=== PATIENT | male | born 1990 | race Caucasian/White ===

== ENCOUNTER 2017-09-10 21:07 | Emergency (ER) | payer BC ==
[2017-09-10 21:15] VITALS: BP 153/93
[2017-09-10] MEDS ORDERED: guaiFENesin/CODIEN 100MG-10MG* 5 ML UDC PO ONE (21:24)
--- NOTE | 2017-09-10 21:32 | UC ---
Respiratory Complaint HPI - HPI Summary HPI Summary: patient has had annoying cough, harsh especially at night, no fever, - History of Current Complaint Chief Complaint: UCRespiratory Stated Complaint: SORE THROAT COUGH RUNNY NOSE Time Seen by Provider: 09/10/17 21:17 Hx Obtained From: Patient Onset/Duration: Sudden Onset, Lasting Days Timing: Constant Severity Initially: Moderate Severity Currently: Moderate Aggravating Factors: Deep Breaths, Recumbent Position Alleviating Factors: Nothing Associated Signs And Symptoms: Positive: Wheezing, URI, Nasal Congestion, Sinus Discomfort - Allergies/Home Medications Allergies/Adverse Reactions: Allergies Allergy/AdvReac Type Severity Reaction Status Date / Time No Known Allergies Allergy Verified 09/10/17 21:15 PMH/Surg Hx/FS Hx/Imm Hx Previously Healthy: Yes - Surgical History Surgical History: Yes Surgery Procedure, Year, and Place: Right and left ACL reconstruction. SUB.CYST FROM SKULL - Family History Known Family History: Positive: Hypertension - Social History Alcohol Use: Occasionally Substance Use Type: None Smoking Status (MU): Never Smoked Tobacco Review of Systems Constitutional: Negative Skin: Negative Eyes: Negative ENT: Negative, Nasal Discharge, Sinus Congestion Respiratory: Cough Cardiovascular: Negative Gastrointestinal: Negative Genitourinary: Negative Motor: Negative Neurovascular: Negative Musculoskeletal: Negative Neurological: Negative Psychological: Negative Is Patient Immunocompromised?: No All Other Systems Reviewed And Are Negative: Yes Physical Exam Triage Information Reviewed: Yes Appearance: Well-Appearing, Well-Nourished, Pain Distress Vital Signs: Initial Vital Signs Temp 96.8 F 09/10/17 21:11 Pulse 90 09/10/17 21:11 Resp 14 09/10/17 21:11 BP 153/93 09/10/17 21:11 Pulse Ox 98 09/10/17 21:11 Vital Signs Reviewed: Yes Eye Exam: Normal ENT Exam: Normal ENT: Positive: Hearing grossly normal, Pharynx normal, TM dull Dental Exam: Normal Neck exam: Normal Neck: Positive: Supple, Nontender, No Lymphadenopathy Respiratory Exam: Normal Respiratory: Positive: Chest non-tender, Normal breath sounds, No respiratory distress, Rhonchi, Wheezing, Inspiration Cardiovascular Exam: Normal Cardiovascular: Positive: RRR Abdominal Exam: Normal Abdomen Description: Positive: Nontender, No Organomegaly, Soft Bowel Sounds: Positive: Present Musculoskeletal Exam: Normal Musculoskeletal: Positive: Strength Intact, ROM Intact, No Edema Neurological Exam: Normal Neurological: Positive: Alert, Muscle Tone Normal Psychological Exam: Normal Skin Exam: Normal UC Diagnostic Evaluation - Laboratory O2 Sat by Pulse Oximetry: 98 Respiratory Course/Dx - Course Course Of Treatment: hx obtained, exam performed, meds reviewed, treated for bronchitis - Differential Dx/Diagnosis Differential Diagnosis/HQI/PQRI: Bronchitis, Sinusitis Provider Diagnoses: bronchitis Discharge - Discharge Plan Condition: Stable Disposition: HOME Prescriptions: Albuterol 2.5MG/3ML (0.083%)* [Ventolin 2.5 MG/3 ML NEB.SHANNAN*] 2.5 mg INH Q4H #1 mdi Dextromethorphan-Guaifenesin [Guaifenesin-Dm 100-10 mg/5Ml] 10 ml PO BEDTIME # 100 ml Guaifenesin-Codeine [Cheratussin AC 100-10 mg/5Ml] 10 ml PO BEDTIME #100 ml MDD 10 ml predniSONE TAB* [Deltasone TAB*] 40 mg PO DAILY #14 tab Patient Education Materials: Acute Bronchitis (ED) Referrals: TRAV Bonner [Primary Care Provider] - Additional Instructions: 1. take the medication as prescribed. 2. INcrease fluid intake 3. Humidifier at night. 4. Follow up as needed.
== END 2017-09-10 21:37 | disposition home or self-care (01) ==
LOC: UCCORT 21:07
DX: J40 Bronchitis, not specified as acute or chronic (principal)
CPT/HCPCS: 99212; A9270-GY; G0463

== ENCOUNTER 2017-10-03 19:31 | Emergency (ER) | payer BC ==
[2017-10-03 20:42] VITALS: BP 136/88
[2017-10-03] MEDS ORDERED: Amoxicillin/Clavulanate TAB* 875 MG PO ONE (21:14)
--- NOTE | 2017-10-03 21:29 | UC ---
Throat Pain/Nasal Pj HPI - HPI Summary HPI Summary: SINUS CONGESTION, PRODUCTIVE COUGH, SORE THROAT SINCE AUGUST. NO FEVER. NO HEADACHE. FACIAL PRESSURE. NO EAR ACHE. - History of Current Complaint Chief Complaint: UCRespiratory Stated Complaint: RESPIRATORY (RECHECK) Time Seen by Provider: 10/03/17 21:07 Hx Obtained From: Patient Onset/Duration: Gradual Onset, Lasting Weeks, Still Present Severity: Moderate Pain Intensity: 0 Pain Scale Used: 0-10 Numeric Cough: Productive Associated Signs & Symptoms: Positive: Hoarseness, Sinus Discomfort, Nasal Discharge - Epiglottits Risk Factors Epiglottis Risk Factors: Negative - Allergies/Home Medications Allergies/Adverse Reactions: Allergies Allergy/AdvReac Type Severity Reaction Status Date / Time No Known Allergies Allergy Verified 10/03/17 20:36 PMH/Surg Hx/FS Hx/Imm Hx Previously Healthy: Yes - Surgical History Surgical History: Yes Surgery Procedure, Year, and Place: Right and left ACL reconstruction. SUB.CYST FROM SKULL - Family History Known Family History: Positive: Hypertension - Social History Occupation: Employed Full-time Lives: With Family Alcohol Use: None Substance Use Type: None Smoking Status (MU): Never Smoked Tobacco - Immunization History Most Recent Influenza Vaccination: no Review of Systems Constitutional: Negative Skin: Negative Eyes: Negative ENT: Sore Throat - Scratchy throat, Sinus Congestion, Sinus Pain/Tenderness Respiratory: Cough Cardiovascular: Negative Gastrointestinal: Negative Genitourinary: Negative Motor: Negative Neurovascular: Negative Musculoskeletal: Negative Neurological: Negative Psychological: Negative Is Patient Immunocompromised?: No All Other Systems Reviewed And Are Negative: Yes Physical Exam Triage Information Reviewed: Yes Appearance: Well-Appearing, No Pain Distress, Well-Nourished Vital Signs: Initial Vital Signs Temp 97.5 F 10/03/17 20:36 Pulse 93 10/03/17 20:36 Resp 18 10/03/17 20:36 BP 136/88 10/03/17 20:36 Pulse Ox 97 10/03/17 20:36 Vital Signs Reviewed: Yes Eye Exam: Normal ENT: Positive: Pharynx normal, Nasal congestion, TM bulging, TM dull Dental Exam: Normal Neck exam: Normal Neck: Positive: Supple, Nontender, No Lymphadenopathy Respiratory Exam: Other - cough Respiratory: Positive: Chest non-tender, Lungs clear, Normal breath sounds, No respiratory distress, No accessory muscle use Cardiovascular Exam: Normal Cardiovascular: Positive: RRR, No Murmur, Pulses Normal, Brisk Capillary Refill Abdominal Exam: Normal Abdomen Description: Positive: Nontender, No Organomegaly Musculoskeletal Exam: Normal Musculoskeletal: Positive: Strength Intact, ROM Intact Neurological Exam: Normal Psychological Exam: Normal Skin Exam: Normal Throat Pain/Nasal Course/Dx - Differential Dx/Diagnosis Differential Diagnosis/HQI/PQRI: Pharyngitis, URI Provider Diagnoses: SINUSITIS; BRONCHITIS Discharge - Discharge Plan Condition: Stable Disposition: HOME Prescriptions: Amoxicillin/Clavulanate TAB* [Augmentin TAB 875*] 875 mg PO BID #20 tab Patient Education Materials: Sinusitis (ED), Acute Bronchitis (ED) Referrals: TRAV Bonner [Primary Care Provider] -
== END 2017-10-03 21:24 | disposition home or self-care (01) ==
LOC: UCCORT 19:31
DX: J32.9 Chronic sinusitis, unspecified (principal); J40 Bronchitis, not specified as acute or chronic
CPT/HCPCS: 99212; A9270-GY; G0463

== ENCOUNTER 2017-10-31 19:33 | Emergency (ER) | payer BC ==
--- NOTE | 2017-10-31 20:16 | UC ---
Respiratory Complaint HPI - HPI Summary HPI Summary: 26 year old male presents with complains of sore throat and chest congestion. On a side note has been on ZPAK, Albuterol and Prednisone. - History of Current Complaint Stated Complaint: F/U BRONCHITIS Time Seen by Provider: 10/31/17 20:15 Hx Obtained From: Patient Onset/Duration: Sudden Onset Severity Initially: Moderate Severity Currently: Moderate Pain Scale Used: 0-10 Numeric - 5 Character: Cough: Nonproductive Alleviating Factors: Bronchodilator - Allergies/Home Medications Allergies/Adverse Reactions: Allergies Allergy/AdvReac Type Severity Reaction Status Date / Time No Known Allergies Allergy Verified 10/31/17 20:22 PMH/Surg Hx/FS Hx/Imm Hx Previously Healthy: Yes - Surgical History Surgical History: Yes Surgery Procedure, Year, and Place: Right and left ACL reconstruction. SUB.CYST FROM SKULL - Family History Known Family History: Positive: Hypertension - Social History Alcohol Use: None Substance Use Type: None Smoking Status (MU): Never Smoked Tobacco - Immunization History Most Recent Influenza Vaccination: no Review of Systems Constitutional: Negative Skin: Negative Eyes: Negative ENT: Sore Throat, Nasal Discharge, Sinus Congestion, Sinus Pain/Tenderness Respiratory: Negative, Cough Cardiovascular: Negative Gastrointestinal: Negative Genitourinary: Negative Motor: Negative Neurovascular: Negative Musculoskeletal: Negative Neurological: Negative Psychological: Negative All Other Systems Reviewed And Are Negative: Yes Physical Exam Triage Information Reviewed: Yes Vital Signs Reviewed: Yes Eye Exam: Normal ENT: Positive: Nasal congestion, Nasal drainage, Sinus tenderness Dental Exam: Normal Neck exam: Normal Neck: Positive: 1 Respiratory: Positive: Rhonchi, Wheezing Cardiovascular Exam: Normal Abdominal Exam: Normal Musculoskeletal Exam: Normal Neurological Exam: Normal Psychological Exam: Normal Skin Exam: Normal Respiratory Course/Dx - Differential Dx/Diagnosis Provider Diagnoses: cough. post nasal drip. CISCO Discharge - Discharge Plan Condition: Stable Disposition: HOME Prescriptions: Fluticasone NASAL SPRAY 50MCG* [Flonase NASAL SPRAY 50MCG*] 2 spray BOTH NARES DAILY #1 btl LoraTADine TAB(NF) [Claritin 10 MG TAB(NF)] 10 mg PO DAILY #30 tab Magic M W2 Drew/Maal/Nyst/Lido* 5 ml SWISH SPIT QID PRN #120 ml PRN Reason: Pain Patient Education Materials: Snoring (ED), Allergic Rhinitis (ED) [facility] - Jamie Chicas MD [Medical Doctor] - Boyd Yang MD [Medical Doctor] -
[2017-10-31 20:22] VITALS: BP 152/95
--- NOTE | 2017-10-31 21:04 | RAD ---
INDICATION: Cough COMPARISON: None TECHNIQUE: PA and lateral dual-energy views were obtained. FINDINGS: Bones/Soft Tissues: There are no acute bony findings. Cardiomediastinal: The cardiomediastinal silhouette is normal. Lungs: There are no infiltrates. There is mild hyperinflation. Pleura: There are no pleural effusions. Other: None IMPRESSION: NO ACTIVE DISEASE
[2017-10-31] MEDS ORDERED: predniSONE TAB* 20 MG PO ONE (21:11)
[2017-10-31] MEDS ORDERED: LoraTADine TAB(NF) 10 MG TAB (AUTOSUB to CETIRIZINE) PO ONE (21:11)
== END 2017-10-31 21:19 | disposition home or self-care (01) ==
LOC: UCCORT 19:33
DX: R05 Cough (principal); R09.82 Postnasal drip; G47.33 Obstructive sleep apnea (adult) (pediatric)
CPT/HCPCS: 71046; 87502; 87651; 99212; A9270-GY; G0463; J7512

== ENCOUNTER 2018-08-27 13:36 | Emergency (ER) | payer BC ==
[2018-08-27 14:00] VITALS: BP 156/98
--- NOTE | 2018-08-27 14:17 | UC ---
Throat Pain/Nasal Pj HPI - HPI Summary HPI Summary: 27-year-old male presents with 2 day history of nasal congestion, clear nasal drainage, sore throat, and nonproductive cough. Associated with some general malaise, body aches, and fatigue. Denies fever, chills, ear pain, dysphagia, chest pain, shortness of breath, abdominal pain, nausea, or vomiting. He has not had his flu shot this year. - History of Current Complaint Chief Complaint: UCGeneralIllness Stated Complaint: SORE THROAT,CONGESTION,COUGH Time Seen by Provider: 08/27/18 14:12 Hx Obtained From: Patient Onset/Duration: Sudden Onset, Lasting Days - 2 Severity: Moderate Pain Intensity: 7 Cough: Nonproductive Associated Signs & Symptoms: Positive: Nasal Discharge. Negative: Dysphagia, Wheezing, Hoarseness, Sinus Discomfort, Fever, Vomiting, Rash - Allergies/Home Medications Allergies/Adverse Reactions: Allergies Allergy/AdvReac Type Severity Reaction Status Date / Time No Known Allergies Allergy Verified 08/27/18 13:56 Home Medications: Home Medications Fexofenadine (NF) [Jenny 180 (NF)] 180 mg PO DAILY 08/27/18 [History Confirmed 08/27/18] PMH/Surg Hx/FS Hx/Imm Hx Previously Healthy: Yes Other Respiratory History: CISCO - Surgical History Surgical History: Yes Surgery Procedure, Year, and Place: Right and left ACL reconstruction. SUB.CYST FROM SKULL - Family History Known Family History: Positive: Hypertension - Social History Occupation: Employed Full-time Lives: With Family Alcohol Use: Occasionally Substance Use Type: None Smoking Status (MU): Never Smoked Tobacco - Immunization History Most Recent Influenza Vaccination: no Review of Systems Constitutional: Fatigue Skin: Negative Eyes: Negative ENT: Sore Throat, Nasal Discharge, Sinus Congestion Respiratory: Cough Cardiovascular: Negative Gastrointestinal: Negative Is Patient Immunocompromised?: No All Other Systems Reviewed And Are Negative: Yes Physical Exam Triage Information Reviewed: Yes Appearance: Well-Appearing, No Pain Distress, Well-Nourished Vital Signs: Initial Vital Signs Temp 98.6 F 08/27/18 13:55 Pulse 81 08/27/18 13:55 Resp 15 08/27/18 13:55 BP 156/98 08/27/18 13:55 Pulse Ox 99 08/27/18 13:55 Eyes: Positive: Conjunctiva Clear. Negative: Discharge ENT: Positive: Hearing grossly normal, Pharyngeal erythema - Mild with post- nasal drip, Nasal congestion, Nasal drainage, TMs normal, Uvula midline. Negative: Tonsillar swelling, Tonsillar exudate, Muffled voice, Sinus tenderness Neck: Positive: Supple, Nontender, No Lymphadenopathy Respiratory: Positive: Lungs clear, Normal breath sounds, No respiratory distress Cardiovascular: Positive: RRR, No Murmur Neurological: Positive: Alert Skin Exam: Normal Throat Pain/Nasal Course/Dx - Course Course Of Treatment: 27 year old male with 2 day history URI symptoms. Afebrile. Exam unremarkable except for some mild nasal congestion, post-nasal drip, mild pharyngeal erythema without tonsillar edema or exudate, and a non- productive cough. Rapid flu negative. Recommend symptomatic treatment. He is to follow up with PCP in 7 days if symptoms persist. Warning symptoms reviewed. Verbalizes understanding. Agrees with POC. - Differential Dx/Diagnosis Differential Diagnosis/HQI/PQRI: Influenza, Pharyngitis, Sinusitis, URI Provider Diagnoses: Viral URI, elevated blood pressure reading Discharge - Sign-Out/Discharge Documenting (check all that apply): Patient Departure All imaging exams completed and their final reports reviewed: No Studies - Discharge Plan Condition: Stable Disposition: HOME Prescriptions: Benzonatate CAP* [Tessalon 100 MG CAP*] 100 mg PO TID PRN #30 cap PRN Reason: Cough Fluticasone NASAL SPRAY 50MCG* [Flonase NASAL SPRAY 50MCG*] 2 spray BOTH NARES DAILY #1 btl Referrals: Nia Love PA [Primary Care Provider] - 7 Days (If symptoms persist.) Additional Instructions: The rapid flu test perfomed in the clinic today was negative. Your history and exam are consistent with viral upper respiratory infection. Viral infections do not respond to antibiotics and typically run their course over 7-10 days. Use a saline rinse kit such as Neti Pot or NeilMed at least twice a day. Start fluticasone nasal spray 2 sprays each nostril once a day. Take an over the counter decongestant such as Sudafed according to directions as needed for nasal congestion. You may use Tessalon Perles 1 cap every 8 hours as needed for cough. Take acetaminophen (Tylenol) or ibuprofen (Advil, Motrin) according to directions as needed for fever or pain. Use salt water gargles several times a day if you have a sore throat. You may also use Chloraseptic spray or Cepacol lozenges for some temporary pain relief from your sore throat. Follow-up with your primary care provider in 7 days if symptoms persist. Your blood pressure was elevated in the clinic today. It is recommended that you follow up with your primary care provider within 4 weeks to have this rechecked. Seek immediate medical attention if you have a persistent fever greater than 100.5 F despite taking acetaminophen or ibuprofen, you are unable to swallow, has difficulty breathing, or have any worsening of symptoms. - Billing Disposition and Condition Condition: STABLE Disposition: Home
== END 2018-08-27 15:02 | disposition home or self-care (01) ==
LOC: UCCORT 13:36
DX: J06.9 Acute upper respiratory infection, unspecified (principal); R03.0 Elevated blood-pressure reading, without diagnosis of hypertension
CPT/HCPCS: 99212; G0463

== ENCOUNTER 2018-10-20 21:33 | Emergency (ER) | payer BC ==
[2018-10-20 21:43] VITALS: BP 154/86
[2018-10-20] MEDS ORDERED: Amoxicillin PO (*) 500 MG CAP PO ONE (21:54)
--- NOTE | 2018-10-20 22:01 | UC ---
Throat Pain/Nasal Pj HPI - HPI Summary HPI Summary: Patient came in and is complaining of scratchy sore throat, sinus congestion, fatigue, frontal sinus pressure general malaise - History of Current Complaint Chief Complaint: UCGeneralIllness Stated Complaint: THROAT,COUGH,SINUSES Time Seen by Provider: 10/20/18 21:42 Hx Obtained From: Patient Onset/Duration: Sudden Onset, Lasting Days Severity: Moderate Pain Intensity: 5 Associated Signs & Symptoms: Positive: Dysphagia, Sinus Discomfort, Nasal Discharge - Allergies/Home Medications Allergies/Adverse Reactions: Allergies Allergy/AdvReac Type Severity Reaction Status Date / Time No Known Allergies Allergy Verified 10/20/18 21:43 PMH/Surg Hx/FS Hx/Imm Hx Previously Healthy: Yes - Surgical History Surgical History: Yes Surgery Procedure, Year, and Place: Right and left ACL reconstruction. SUB.CYST FROM SKULL - Family History Known Family History: Positive: Hypertension - Social History Alcohol Use: Occasionally Substance Use Type: None Smoking Status (MU): Never Smoked Tobacco - Immunization History Most Recent Influenza Vaccination: no Review of Systems All Other Systems Reviewed And Are Negative: Yes Constitutional: Positive: Fatigue Skin: Positive: Negative Eyes: Positive: Negative ENT: Positive: Sore Throat, Nasal Discharge, Sinus Congestion, Sinus Pain/ Tenderness Respiratory: Positive: Cough Cardiovascular: Positive: Negative Gastrointestinal: Positive: Negative Genitourinary: Positive: Negative Motor: Positive: Negative Neurovascular: Positive: Negative Musculoskeletal: Positive: Negative Neurological: Positive: Headache Psychological: Positive: Negative Is Patient Immunocompromised?: No Physical Exam Triage Information Reviewed: Yes Appearance: Well-Nourished, Ill-Appearing, Pain Distress Vital Signs: Initial Vital Signs Temp 97.6 F 10/20/18 21:37 Pulse 85 10/20/18 21:37 Resp 22 10/20/18 21:37 BP 154/86 10/20/18 21:37 Pulse Ox 96 10/20/18 21:37 Vital Signs Reviewed: Yes Eye Exam: Normal ENT: Positive: Pharyngeal erythema, Nasal congestion, Nasal drainage, Tonsillar swelling, Other - right TM noted to have a perforation possible cholestroma, TM red and inflammed, left ear serous otitis noted Dental Exam: Normal Neck exam: Normal Neck: Positive: Supple, Nontender, No Lymphadenopathy Respiratory Exam: Normal Respiratory: Positive: Chest non-tender, Lungs clear, Normal breath sounds Cardiovascular Exam: Normal Cardiovascular: Positive: RRR, No Murmur, Pulses Normal Abdominal Exam: Normal Bowel Sounds: Positive: Present Musculoskeletal Exam: Normal Neurological Exam: Normal Psychological Exam: Normal Skin Exam: Normal Throat Pain/Nasal Course/Dx - Course Course Of Treatment: hx obtained, exam performed ,meds reviewed, rapid strep obtained and was neagtive. treated for otitis media, and referred to ENT Patient hearing seems to be unaffected. He denies any pain - Differential Dx/Diagnosis Differential Diagnosis/HQI/PQRI: Influenza, Laryngitis, Otitis Media, Pharyngitis, Sinusitis Provider Diagnosis: Perforation of tympanic membrane, nontraumatic, Sinusitis Discharge - Sign-Out/Discharge Documenting (check all that apply): Patient Departure All imaging exams completed and their final reports reviewed: No Studies - Discharge Plan Condition: Stable Disposition: HOME Prescriptions: Amoxicillin PO (*) [Amoxicillin 875 MG (*)] 875 mg PO BID #19 tab predniSONE [Prednisone 20 MG TAB] 40 mg PO DAILY #14 tablet Patient Education Materials: Ruptured Eardrum (ED) Referrals: Nia Love PA [Primary Care Provider] - Dav Cleaning MD [Medical Doctor] - Additional Instructions: 1. Take the amoxicillin for you ear 2. Take the prednisone for your sinus and throat 3. Ibuprofen for pain, 4. COntinue with your eric daily 5. Follow up with the ENT listed on the paperwork. Call first thing m[facility] to get an appointment - Billing Disposition and Condition Condition: STABLE Disposition: Home - Attestation Statements Provider Attestation: Per institutional requirements, I have reviewed the chart, however, I was not consulted specifically or made aware of this patient by the midlevel provider. I did not personally evaluate, interact with , or disposition this patient.
== END 2018-10-20 22:20 | disposition home or self-care (01) ==
LOC: UCCORT 21:33
DX: H72.91 Unspecified perforation of tympanic membrane, right ear (principal); J32.9 Chronic sinusitis, unspecified
CPT/HCPCS: 87651; 99212; A9270-GY; G0463

== ENCOUNTER 2019-02-11 20:38 | Emergency (ER) | payer BC ==
--- NOTE | 2019-02-11 21:31 | UC ---
Epistaxis Nasal HPI - HPI Summary HPI Summary: Patient was playing sports last week when he was elbowed in the nose. He had a subsequent nosebleed which eventually was controlled. He states tonight he came to be seen because he had some bruising underneath the eyes and was told by friends that if he had bruising under his eyes it could be really bad and so he wanted it checked. No loss of consciousness. Denies any neck pain. - History of Current Complaint Stated Complaint: NASAL INJURY Time Seen by Provider: 02/11/19 21:31 Hx Obtained From: Patient Onset/Duration: Sudden Onset Timing: Constant Severity Initially: Moderate Severity Currently: Mild Aggravating Factor(s): Nasal Trauma - He was elbowed in the nose days ago. Alleviating Factor(s): Nothing Associated Signs And Symptoms: Positive: Negative - Allergies/Home Medications Allergies/Adverse Reactions: Allergies Allergy/AdvReac Type Severity Reaction Status Date / Time No Known Allergies Allergy Verified 02/11/19 21:28 Home Medications: Home Medications NK [No Home Medications Reported] 02/11/19 [History Confirmed 02/11/19] PMH/Surg Hx/FS Hx/Imm Hx Previously Healthy: Yes - Surgical History Surgical History: Yes Surgery Procedure, Year, and Place: Right and left ACL reconstruction. SUB.CYST FROM SKULL - Family History Known Family History: Positive: Hypertension - Social History Alcohol Use: Occasionally Substance Use Type: None Smoking Status (MU): Never Smoked Tobacco - Immunization History Most Recent Influenza Vaccination: no Review of Systems All Other Systems Reviewed And Are Negative: Yes ENT: Positive: Other - Mild tenderness on palpation nose, his nose does appear somewhat slanted, he has some bruising underneath both eyes. Is Patient Immunocompromised?: No Physical Exam Triage Information Reviewed: Yes Appearance: Well-Appearing, No Pain Distress, Well-Nourished Vital Signs Reviewed: Yes Eyes: Positive: Other: - Mild bruising under both eyes. PERRLA EOMI ENT: Positive: Pharynx normal, TMs normal, Uvula midline - No septal hematoma is visualized. The nose is minimally tender on palpation. There is no specific deformity however his nose does appear mildly slanted which may be normal for him. Neck exam: Normal Neck: Positive: Supple, Nontender, No Lymphadenopathy Respiratory Exam: Normal Cardiovascular Exam: Normal Musculoskeletal Exam: Normal Neurological Exam: Normal Psychological Exam: Normal Skin Exam: Normal Epistaxis Nasal Course/Dx - Course Course Of Treatment: Nasal bones x-ray: Positive for nasal fracture as read by Dr. Guardado and myself. Patient has seen Dr. Richmond in the past and he prefers to go see Dr. Richmond for follow up for this. - Differential Dx/Diagnosis Provider Diagnosis: Fractured nose Discharge - Sign-Out/Discharge Documenting (check all that apply): Patient Departure All imaging exams completed and their final reports reviewed: No - Discharge Plan Condition: Fair Disposition: HOME Patient Education Materials: Nasal Fracture (ED) Referrals: Nia Love PA [Primary Care Provider] - Kenji Richmond MD [Medical Doctor] - Additional Instructions: Call Dr. Richmond tomorrow and make an appointment to be seen. You do have a fracture of your nose. - Billing Disposition and Condition Condition: FAIR Disposition: Home - Attestation Statements Provider Attestation: Per institutional requirements, I have reviewed the chart, however, I was not consulted specifically or made aware of this patient by the midlevel provider. I did not personally evaluate, interact with , or disposition this patient.
[2019-02-11 21:33] VITALS: BP 140/86
--- NOTE | 2019-02-12 09:34 | UC ---
- Progress Note Progress Note: nasal bone xray : REPORT AND IMPRESSION: #. Grossly nondisplaced nasal bone fractures with overlying soft tissue swelling. Unremarkable orbital margins on the Velazquez' view. The paranasal sinuses appear normally aerated. R0 Course/Dx - Diagnoses Provider Diagnoses: Fractured nose Discharge - Sign-Out/Discharge Documenting (check all that apply): Patient Departure All imaging exams completed and their final reports reviewed: Yes - Discharge Plan Condition: Fair Disposition: HOME Patient Education Materials: Nasal Fracture (ED) Referrals: Nia Love PA [Primary Care Provider] - Kenji Richmond MD [Medical Doctor] - Additional Instructions: Call Dr. Richmond tomorrow and make an appointment to be seen. You do have a fracture of your nose. - Billing Disposition and Condition Condition: FAIR Disposition: Home
== END 2019-02-11 23:09 | disposition home or self-care (01) ==
LOC: UCCORT 20:38
DX: S02.2XXA Fracture of nasal bones, initial encounter for closed fracture (principal); X58.XXXA Exposure to other specified factors, initial encounter; Y92.9 Unspecified place or not applicable
CPT/HCPCS: 70160; 99211; G0463

== ENCOUNTER 2019-05-17 09:26 | Emergency (ER) | payer BC, OTHER ==
[2019-05-17 10:00] VITALS: BP 129/79
--- NOTE | 2019-05-17 10:27 | UC ---
Throat Pain/Nasal Pj HPI - HPI Summary HPI Summary: 28 year old male presents with sore throat, hurts to swallow for the past day. Uncertain if he has had fever, notes some chills and mildly swollen anterior cervical glands. Slight nasal congestion, no cough nor sob. - History of Current Complaint Chief Complaint: UCGeneralIllness Stated Complaint: ST Time Seen by Provider: 05/17/19 10:07 Onset/Duration: Sudden Onset, Lasting Hours - Past 24 hours Severity: Moderate Pain Intensity: 8 Cough: None Associated Signs & Symptoms: Positive: Nasal Discharge - slight, Other - swollen anterior cervical glands - Allergies/Home Medications Allergies/Adverse Reactions: Allergies Allergy/AdvReac Type Severity Reaction Status Date / Time No Known Allergies Allergy Verified 02/11/19 21:28 Home Medications: Home Medications Fexofenadine (NF) [Jenny (NF)] 60 mg PO DAILY 05/17/19 [History Confirmed ] Naproxen Sodium [Aleve] 440 mg PO Q12HR PRN 05/17/19 [History Confirmed 05/17/19 ] PMH/Surg Hx/FS Hx/Imm Hx Previously Healthy: Yes - Seasonal allergies - Surgical History Surgical History: Yes Surgery Procedure, Year, and Place: Right and left ACL reconstruction. SUB.CYST FROM SKULL - Family History Known Family History: Positive: Hypertension - Social History Lives: With Family - mother, father recently . Alcohol Use: Occasionally Alcohol Amount: WEEKENDS Substance Use Type: None Smoking Status (MU): Never Smoked Tobacco - Immunization History Most Recent Influenza Vaccination: no Review of Systems All Other Systems Reviewed And Are Negative: Yes Constitutional: Positive: Chills Skin: Positive: Negative Eyes: Positive: Negative ENT: Positive: Sore Throat, Sinus Congestion - mild nasal congestion Respiratory: Positive: Negative Cardiovascular: Positive: Negative Gastrointestinal: Positive: Negative Genitourinary: Positive: Negative Motor: Positive: Negative Neurovascular: Positive: Negative Musculoskeletal: Positive: Negative Neurological: Positive: Negative Psychological: Positive: Negative Physical Exam Triage Information Reviewed: Yes Appearance: Well-Appearing, No Pain Distress, Well-Nourished Vital Signs: Initial Vital Signs Temp 97.8 F 05/17/19 09:55 Pulse 100 05/17/19 09:55 Resp 16 05/17/19 09:55 BP 129/79 05/17/19 09:55 Pulse Ox 96 05/17/19 09:55 Eye Exam: Normal ENT: Positive: Pharynx normal, Nasal congestion, TMs normal Neck: Positive: Enlarged Nodes @ - mild bilateral anterior cervical adenopathy. Respiratory Exam: Normal Cardiovascular Exam: Normal Abdominal Exam: Normal Musculoskeletal Exam: Normal Neurological Exam: Normal Psychological Exam: Normal Skin Exam: Normal Throat Pain/Nasal Course/Dx - Course Course Of Treatment: Positive rapid strep, treated with Pen VK. - Differential Dx/Diagnosis Provider Diagnosis: Strep pharyngitis Discharge - Sign-Out/Discharge Documenting (check all that apply): Patient Departure All imaging exams completed and their final reports reviewed: No Studies - Discharge Plan Condition: Stable Disposition: HOME Prescriptions: Penicillin VK 500 MG TAB(NF) [Penicillin VK 500 mg Tab] 500 mg PO TID 10 Days # 30 tab Patient Education Materials: Strep Throat (ED) Referrals: Nia Love PA [Primary Care Provider] - Additional Instructions: Drink plenty of fluids, can take Aleve over the counter as needed for throat pain and/or fever. Take all medication as prescribed. Follow-up if symptoms persist or worsen. - Billing Disposition and Condition Condition: STABLE Disposition: Home
== END 2019-05-17 10:43 | disposition home or self-care (01) ==
LOC: UCCORT 09:26
DX: J02.0 Streptococcal pharyngitis (principal)
CPT/HCPCS: 87651; 99212; G0463

== ENCOUNTER 2019-09-09 21:01 | Emergency (ER) | payer BC ==
[2019-09-09 21:14] VITALS: BP 150/86
[2019-09-09] MEDS ORDERED: predniSONE TAB* 20 MG PO ONE (21:29)
[2019-09-09] MEDS ORDERED: Benzonatate CAP* 100 MG PO ONE (21:29)
--- NOTE | 2019-09-09 21:29 | UC ---
Throat Pain/Nasal Pj HPI - HPI Summary HPI Summary: 28 yo male with a hx of asthma presents with a one week hx of cough/wheezing, sore throat and congestion out of rescue inhaler cough is not productive no f/c worse when he runs - History of Current Complaint Chief Complaint: UCGeneralIllness Stated Complaint: COUGH,RUNNY NOSE, SORE THROAT Time Seen by Provider: 09/09/19 21:10 Hx Obtained From: Patient Onset/Duration: Gradual Onset, Lasting Days Severity: Moderate Pain Intensity: 5 Pain Scale Used: 0-10 Numeric Cough: Nonproductive Associated Signs & Symptoms: Positive: Wheezing, Sinus Discomfort, Nasal Discharge Related History: Seasonal Allergies - Epiglottits Risk Factors Epiglottis Risk Factors: Negative - Allergies/Home Medications Allergies/Adverse Reactions: Allergies Allergy/AdvReac Type Severity Reaction Status Date / Time oak Allergy Itching Verified 09/09/19 21:08 erythromycin base AdvReac Vomiting Verified 09/09/19 21:14 dust mites Allergy Itching Uncoded 09/09/19 21:08 Home Medications: Home Medications Ibuprofen TAB* [Advil TAB*] 1,000 mg PO Q6H PRN 09/09/19 [History Confirmed ] Melatonin/Pyridoxine HCl (B6) [Melatonin] 1 tab PO BEDTIME 09/09/19 [History Confirmed 09/09/19] Phenylephrine/Dm/Acetaminop/GG [Daytime Severe Cold-Flu Liquid] 1 udc PO BID PRN 09/09/19 [History Confirmed 09/09/19] PMH/Surg Hx/FS Hx/Imm Hx Previously Healthy: Yes Respiratory History: Asthma, Bronchitis - Surgical History Surgical History: Yes Surgery Procedure, Year, and Place: Right and left ACL reconstruction. SUB.CYST FROM SKULL - Family History Known Family History: Positive: Hypertension, Respiratory Disease - Social History Alcohol Use: Occasionally Alcohol Amount: WEEKENDS Substance Use Type: None Smoking Status (MU): Never Smoked Tobacco - Immunization History Most Recent Influenza Vaccination: no Review of Systems All Other Systems Reviewed And Are Negative: Yes Constitutional: Positive: Negative Skin: Positive: Negative Eyes: Positive: Negative ENT: Positive: Sore Throat, Nasal Discharge, Sinus Congestion, Sinus Pain/ Tenderness Respiratory: Positive: Cough Cardiovascular: Positive: Negative Gastrointestinal: Positive: Negative Genitourinary: Positive: Negative Motor: Positive: Negative Neurovascular: Positive: Negative Musculoskeletal: Positive: Negative Neurological: Positive: Negative Psychological: Positive: Negative Physical Exam Triage Information Reviewed: Yes Appearance: Well-Appearing, No Pain Distress, Well-Nourished Vital Signs: Initial Vital Signs Temp 97.7 F 09/09/19 21:11 Pulse 82 09/09/19 21:11 Resp 16 09/09/19 21:11 BP 150/86 09/09/19 21:11 Pulse Ox 99 09/09/19 21:11 Vital Signs Reviewed: Yes Eyes: Positive: Conjunctiva Clear ENT: Positive: Hearing grossly normal. Negative: Nasal congestion, Nasal drainage, Tonsillar swelling, Tonsillar exudate, Trismus, Muffled voice, Hoarse voice Neck: Positive: Supple, Nontender, No Lymphadenopathy Respiratory: Positive: No respiratory distress, No accessory muscle use, Wheezing - with forced expiration, Other: - bronchospastic cough Cardiovascular: Positive: RRR, No Murmur Musculoskeletal: Positive: ROM Intact, No Edema Neurological: Positive: Alert Psychological Exam: Normal Skin Exam: Normal Throat Pain/Nasal Course/Dx - Course Course Of Treatment: strep (-) - Differential Dx/Diagnosis Provider Diagnosis: Viral URI with cough, Bronchospasm Discharge ED - Sign-Out/Discharge Documenting (check all that apply): Patient Departure All imaging exams completed and their final reports reviewed: No Studies - Discharge Plan Condition: Stable Disposition: HOME Patient Education Materials: Upper Respiratory Infection (ED), How to Use a Metered-Dose Inhaler and a Spacer (ED) Referrals: Nia Love PA [Primary Care Provider] - - Billing Disposition and Condition Condition: STABLE Disposition: Home
[2019-09-09] MEDS ORDERED: Albuterol HFA INHALER* 8 gm MDI INH ONE (21:30)
== END 2019-09-09 21:50 | disposition home or self-care (01) ==
LOC: UCCORT 21:01
DX: J06.9 Acute upper respiratory infection, unspecified (principal); R05 Cough; J45.909 Unspecified asthma, uncomplicated; Z91.09 Other allergy status, other than to drugs and biological substances; Z88.1 Allergy status to other antibiotic agents
CPT/HCPCS: 87651; 99213; A9270-GY; G0463; J7512